=== PATIENT | female | born 1985 | race Caucasian/White ===

== ENCOUNTER 2018-04-05 23:02 | Emergency (ER) | payer MEDICAID, OTHER ==
[~2018-04-05] VITALS: Wt 72.4 kg
[~2018-04-05 23:02] MED LIST: PREN-39 PO
--- NOTE | 2018-04-06 03:14 | ERD ---
ER Documentation Chief Complaint Chief Complaint AP/ CRAMPS X'S 4 DAYS HPI This is a 33-year-old female presents to emerge department with complaints of right upper abdominal pain started 4 days ago. Also complains of vaginal discha rge is whitish with mild orders. LMP: Last February 25, 2018. and M1. Denies headache, head injury, loss of consciousness, dizziness, neck pain, neck stiffness, throat pain, difficulty swallowing, difficulty breathing lying flat, shoulder pain, chest pain, back pain, nausea, vomiting, constipation, diarrhea, urinary symptoms, or possibility being , loss of bowel and b ladder control, trauma, injury, falls, difficulty walking due to pain, numbness or tingling sensation, calf pain, recent travel, recent major surgery in the last 3 weeks, calf pain, recent long travel, recent exposure to any illness, recent antibiotic use in the last 3 months, fever, chills, seizures. Past medical history: Surgical history: x2. Social: Denies smoking, use of alcoholic beverages, use of illegal drugs. ROS All systems reviewed and are negative except as per history of present illness. Medications Home Meds Active Scripts Ibuprofen* (Motrin*) 800 Mg Tab, 800 MG PO Q6H PRN for PAIN AND OR ELEVATED TEMP, #30 TAB Prov:PASILABANHARPREET F 04/06/18 Famotidine* (Pepcid*) 20 Mg Tablet, 40 MG PO DAILY for 30 Days, TAB Prov:PASILABAN,LULAAR F 04/06/18 Ondansetron Hcl* (Zofran*) 4 Mg Tablet, 4 MG PO Q6H PRN for NAUSEA, #20 TAB Prov:PASILABANHARPREET F 04/06/18 Acetaminophen* (Tylophen*) 500 Mg Capsule, 1 CAP PO Q6H PRN for PAIN AND OR ELEVATED TEMP, #20 CAP Prov:PASILABAN,HARPREET F 04/06/18 Cephalexin* (Keflex*) 500 Mg Capsule, 500 MG PO TID for 7 Days, CAP Prov:PASILABAN,LULAAR F 04/06/18 Reported Medications Vits W-Ca,Fe,Fa(<1MG) ( Vitamins) 1 Tab Tablet, 1 TAB PO DAILY 03/11/14 Allergies Allergies: Coded Allergies: No Known Allergy (Unverified , 03/11/14) PMhx/Soc History of Surgery: Yes ( X3) Anesthesia Reaction: No Hx Neurological Disorder: No Hx Respiratory Disorders: No Hx Cardiac Disorders: No Hx Psychiatric Problems: No Hx Miscellaneous Medical Probl: No Hx Alcohol Use: Yes (occasional) Hx Substance Use: No Hx Tobacco Use: No Smoking Status: Never smoker Physical Exam Vitals Vital Signs Date Temp Pulse Resp B/P (MAP) Pulse Ox O2 O2 Flow FiO2 Time Delivery Rate 04/06/18 98.9 80 19 106/75 98 Room Air 06:24 (85) 04/05/18 97.8 68 18 121/72 98 23:05 (88) Physical Exam Const: No acute distress Head: Atraumatic Eyes: Normal Conjunctiva ENT: Normal External Ears, Nose and Mouth. Neck: Full range of motion. No meningismus. Resp: Clear to auscultation bilaterally Cardio: Regular rate and rhythm, no murmurs Abd: Soft, non tender, non distended. Normal bowel sounds there is mild right upper abdominal tenderness to light and deep palpation.. Negative Ana sign (heel jar test). Negative psoas sign. Negative Rovsing sign. No CVA tenderness. Able to jump 3 times without developing lower abdominal pain. Skin: No petechiae or rashes. Examined with female automobile painter. There is no v esicular lesions. Back: No midline or flank tenderness Ext: No cyanosis, or edema Neur: Awake and alert. No neurological deficits. Psych: Normal Mood and Affect Result Diagram: 04/06/18 0341 04/06/18 0341 Results 24 hrs Laboratory Tests Test 04/06/18 03:35 04/06/18 03:41 04/06/18 03:49 04/06/18 03:51 Urine Color YELLOW Urine Clarity SLIGHTLY CLOUDY Urine pH 5.0 Urine Specific 1.021 [place] Urine Ketones NEGATIVE mg/dL Urine Nitrite POSITIVE mg/dL Urine Bilirubin NEGATIVE mg/dL Urine NEGATIVE mg/dL Urobilinogen Urine Leukocyte NEGATIVE Miguel/ul Esterase Urine Microscopic 0 /HPF RBC Urine Microscopic 1 /HPF WBC Urine Squamous FEW /HPF Epithelial Cells Urine Bacteria FEW /HPF Urine Mucus FEW /HPF Urine Hemoglobin NEGATIVE mg/dL Urine Glucose NEGATIVE mg/dL Urine Total NEGATIVE mg/dl Protein Chlamydia NOT DETECTED trachomatis RNA (TMA) Chlamydia/GC SEE NOTE Comment Neisseria NOT DETECTED gonorrhoeae RNA (TMA) White Blood Count 8.2 10^3/ul Red Blood Count 4.42 10^6/ul Hemoglobin 12.0 g/dl Hematocrit 36.9 % Mean Corpuscular 83.5 fl Volume Mean Corpuscular 27.1 pg Hemoglobin Mean Corpuscular 32.5 g/dl Hemoglobin Concen t Red Cell 14.0 % Distribution Width Platelet Count 161 10^3/UL Mean Platelet 13.4 fl Volume Immature 0.200 % Granulocytes % Neutrophils % 50.3 % Lymphocytes % 35.7 % Monocytes % 8.4 % Eosinophils % 4.4 % Basophils % 1.0 % Nucleated Red 0.0 /100WBC Blood Cells % Immature 0.020 10^3/ul Granulocytes # Neutrophils # 4.1 10^3/ul Lymphocytes # 2.9 10^3/ul Monocytes # 0.7 10^3/ul Eosinophils # 0.4 10^3/ul Basophils # 0.1 10^3/ul Nucleated Red 0.0 10^3/ul Blood Cells # Sodium Level 140 mmol/L Potassium Level 4.0 mmol/L Chloride Level 104 mmol/L Carbon Dioxide 27 mmol/L Level Anion Gap 9 Blood Urea 12 mg/dl Nitrogen Creatinine 0.49 mg/dl Est Glomerular > 60 mL/min Filtrat Rate mL/min Glucose Level 86 mg/dl Calcium Level 9.0 mg/dl Total Bilirubin 0.2 mg/dl Direct Bilirubin 0.00 mg/dl Indirect 0.2 mg/dl Bilirubin Aspartate Amino 21 IU/L Transf (AST/SGOT) Alanine 17 IU/L Aminotransferase (ALT/SGPT) Alkaline 75 IU/L Phosphatase Total Protein 7.4 g/dl Albumin 4.1 g/dl Globulin 3.30 g/dl Albumin/Globulin 1.24 Ratio Amylase Level 73 U/L Lipase 67 U/L Bedside Urine pH 5.5 (LAB) Bedside Urine Negative Protein (LAB) Bedside Urine Negative Glucose (UA) Bedside Urine Negative Ketones (LAB) Bedside Urine Negative Blood Bedside Urine Positive Nitrite (LAB) Bedside Urine Negative Leukocyte Esteras e (L POC Beta HCG, NEGATIVE Qualitative Current Medications Medications Dose Sig/[place] Start Time Status Last (Trade) Ordered Route PRN Stop Time Admin Dose Reason Admin Ondansetron 4 mg ONCE STAT 04/06/18 DC 04/06/18 HCl (Zofran ODT 03:15 04:03 Odt) 2/24/19 03:20 40 ml ONCE ONCE 04/06/18 DC 04/06/18 Miscellaneous PO 03:30 04:03 Medication 04/06/18 03:31 (Gi Cocktail (2)) Procedures/MDM Diagnostic tests: POC urine : Negative. Urinalysis: Positive nitrites. Blood works: Reviewed. Ultrasound of the gallbladder:Mild prominence of the right renal collecting system without jaclyn hydronephrosis. Treatment: Zofran. GI cocktail. Re-evaluation: No episode of emesis here in the emergency department. Negative Trevino sign. Negative Donna sign open (heel jar test). Negative psoas sign. Negative Rovsing sign. No CVA tenderness. Able to jump 5 times without developing lower abdominal pain. Ambulatory with steady gait and without pain to abdomen. No neurovascular gastrin no neurological deficits. Differential diagnosis I have low suspicion for pancreatitis, cholecystitis, diverticulitis, diverticulitis with abscess, appendicitis, bowel obstruction, mesenteric ischemia, pyelonephritis, nephrolithiasis, obstructing kidney stones, septic stone. Final diagnosis: Urinary tract infection. Prescription: Keflex. Motrin. Tylenol. Pepcid. Zofran. Follow-up with PCP in the next 24-48 hours. Come back here in the emergency department for any new symptoms or any worsening symptoms. All questions and concerns were answered. Patient and family members verbalized understanding and agreed with plan of care. Hemodynamically stable on discharge. Departure Diagnosis: Primary Impression: UTI (urinary tract infection) Condition: Stable Additional Instructions: Follow-up with PCP in the next 24-48 hours. Come back here in the emergency department for any new symptoms or any worsening symptoms. HARPREET SIBLEY Apr 06, 2018 03:14
[2018-04-06] MEDS ORDERED: ONDANSETRON (ODT) 4 MG TAB ODT STA (03:15)
[2018-04-06] MEDS ORDERED: LIDOCAINE/MYLANTA 40 ML BTL PO ONE (03:30)
[2018-04-06] MEDS ORDERED: CEPH-443 PO (06:10)
[2018-04-06] MEDS ORDERED: ACET500C5 PO (06:10)
[2018-04-06] MEDS ORDERED: ONDA4TAB8 PO (06:11)
[2018-04-06] MEDS ORDERED: FAMO-96 PO (06:11)
[2018-04-06 06:24] VITALS: BP 106/75; PULSE 80; RESP 19
[2018-04-06] MEDS ORDERED: IBUP800T48 PO (06:26)
== END 2018-04-06 06:27 | disposition home or self-care (01) ==
LOC: FTE 23:02
DX: N39.0 Urinary tract infection, site not specified (principal)
CPT/HCPCS: 76705; 80053; 81001; 81025; 82150; 83690; 85025; 87086; 87591; Z7610; 81003